=== PATIENT | female | born 1975 | race Caucasian/White ===

== ENCOUNTER 2020-01-16 18:40 | Emergency (ER) | payer MEDICARE ==
[~2020-01-16] VITALS: Ht 152.4 cm; Wt 60.0 kg
[2020-01-16 19:36] LABS: HEMATOCRIT 41.2 % (37.0-47.0); IMMATURE GRANULOCYTES 0.3 % (0.0-5.0); MEAN CELL VOLUME 94.7 fL CALC (80.0-100.0); MEAN CORPUSCULAR HGB 29.9 pG CALC (26.0-32.0); MEAN CORPUSCULAR HGB CONC 31.6 g/dL CAL (32.0-36.0); NEUT# 3.93 thou/uL (2.00-7.15); RED BLOOD COUNT 4.35 mill/uL (4.20-5.60); RED CELL DISTRI WIDTH 12.7 % (11.5-15.5)
[2020-01-16 19:38] LABS: URINE BILIRUBIN - DIPSTICK NEGATIVE (NEGATIVE); URINE BLOOD DIPSTICK NEGATIVE (NEGATIVE); URINE COLOR YELLOW; URINE GLUCOSE - DIPSTICK NEGATIVE (NEGATIVE); URINE KETONE NEGATIVE (NEGATIVE); URINE LEUK ESTERASE NEGATIVE (NEGATIVE); URINE NITRITE - DIPSTICK NEGATIVE (Negative); URINE PROTEIN - DIPSTICK NEGATIVE (NEG-TRACE); URINE SPECIFIC GRAVITY 1.025; URINE UROBILINOGEN - DIPSTICK 0.2 E.U./dL (0.2)
[2020-01-16 20:06] LABS: ALBUMIN 4.8 g/dL (3.2-5.0); ANION GAP 13 (6-22 (CALC)); BILIRUBIN, TOTAL 0.3 mg/dL (0.0-1.4); BUN 8 mg/dL (7-17); BUN/CREATININE RATIO 10 (12-20 (CALC)); CARBON DIOXIDE 29 mmol/l (22-30); CHLORIDE 97 mmol/l (95-108); CREATININE 0.8 mg/dL (0.5-1.0); GFR > 60 ML/MIN (>=60 (CALC)); GFR FOR AFR.AMER. > 60 ML/MIN (>=60 (CALC)); LIPASE 84 u/l (23-300); POTASSIUM 4.1 mmol/l (3.5-5.1); SGOT/AST 26 u/l (14-36); SODIUM 135 mmol/l (137-146)
[2020-01-16 20:09] LABS: ALKALINE PHOSPHATASE 79 u/l (38-126)
[2020-01-16] MEDS ORDERED: ONDANSETRON4 MG PO (21:07)
[2020-01-16] MEDS ORDERED: ULTRAM50 M1 PO (21:07)
[2020-01-16 21:14] VITALS: BP 159/86
== END 2020-01-16 21:14 | disposition home or self-care (01) ==
LOC: ED 18:40
DX: R10.32 Left lower quadrant pain (principal); G89.29 Other chronic pain; F17.200 Nicotine dependence, unspecified, uncomplicated; I25.2 Old myocardial infarction; Z95.5 Presence of coronary angioplasty implant and graft; Z91.041 Radiographic dye allergy status

== ENCOUNTER 2020-03-28 08:42 | Day surgery (SDC) | payer MEDICARE ==
[~2020-03-28] VITALS: Ht 152.4 cm; Wt 53.5 kg
[~2020-03-28 08:42] MED LIST: CARBAMAZEPIN200 MG PO; CLONAZEPAM1 MG PO; CRESTOR10 MG PO; CYMBALTA60 MG PO; FOLIC ACID1 MG PO; HYDROXYCHLOR200 M1 PO; MEDICAL MARIJUANA IN; ONDANSETRON4 MG PO; PLAVIX75 MG PO; ULTRAM50 M1 PO
[2020-03-28 10:49] VITALS: BP 125/59
== END 2020-03-28 10:48 | disposition home or self-care (01) ==
LOC: ENDO 08:42
PROVIDERS: ATTEND Surgery
PROC: 3E0G8GC Introduction of Other Therapeutic Substance into Upper GI, Via Natural or Artificial Opening Endoscopic (ICD-10-PCS; principal; 2020-03-28)
DX: K31.84 Gastroparesis (principal); Z87.891 Personal history of nicotine dependence; Z20.828 Contact with and (suspected) exposure to other viral communicable diseases
CPT/HCPCS: J0585

== ENCOUNTER 2021-04-21 18:53 | Emergency (ER) | payer MEDICARE ==
[~2021-04-21] VITALS: Ht 152.4 cm; Wt 54.0 kg
[2021-04-21 19:59] LABS: URINE BILIRUBIN - DIPSTICK NEGATIVE (NEGATIVE); URINE BLOOD DIPSTICK NEGATIVE (NEGATIVE); URINE COLOR YELLOW; URINE GLUCOSE - DIPSTICK NEGATIVE (NEGATIVE); URINE KETONE NEGATIVE (NEGATIVE); URINE LEUK ESTERASE NEGATIVE (NEGATIVE); URINE PROTEIN - DIPSTICK NEGATIVE (NEG-TRACE); URINE UROBILINOGEN - DIPSTICK 0.2 E.U./dL (0.2)
[2021-04-21 20:00] LABS: HEMATOCRIT 37.3 % (37.0-47.0); HEMOGLOBIN 12.2 g/dl (12.0-16.0); IMMATURE GRANULOCYTES 0.3 % (0.0-5.0); MEAN CELL VOLUME 93.7 fL CALC (80.0-100.0); MEAN CORPUSCULAR HGB 30.7 pG CALC (26.0-32.0); MEAN CORPUSCULAR HGB CONC 32.7 g/dL CAL (32.0-36.0); NEUT# 2.2 thou/uL (2.00-7.15); RED BLOOD COUNT 3.98 mill/uL (4.20-5.60); RED CELL DISTRI WIDTH 12.3 % (11.5-15.5)
[2021-04-21 20:00] LABS: URINE NITRITE - DIPSTICK NEGATIVE (Negative)
[2021-04-21] MEDS ORDERED: RANOLAZINE ER500 MG (20:02)
[2021-04-21] MEDS ORDERED: RASUVO10 MG/0.2 (20:03)
[2021-04-21] MEDS ORDERED: NITROGLYCERIN0.4 MG (20:04)
[2021-04-21 20:13] LABS: ALBUMIN 4.2 g/dL (3.2-5.0); ALKALINE PHOSPHATASE 61 u/l (38-126); AMYLASE 97 u/l (30-110); ANION GAP 14 (6-22 (CALC)); BUN 4 mg/dL (7-17); BUN/CREATININE RATIO 5 (12-20 (CALC)); CARBON DIOXIDE 26 mmol/l (22-30); CHLORIDE 100 mmol/l (95-108); CREATININE 0.9 mg/dL (0.5-1.0); GFR > 60 ML/MIN (>=60 (CALC)); GFR FOR AFR.AMER. > 60 ML/MIN (>=60 (CALC)); LIPASE 76 u/l (23-300); POTASSIUM 3.9 mmol/l (3.5-5.1); SGOT/AST 28 u/l (14-36); SODIUM 137 mmol/l (137-146); TOTAL PROTEIN 7.4 g/dL (6.3-8.2)
[2021-04-21 20:14] LABS: BILIRUBIN, TOTAL 0.5 mg/dL (0.0-1.4)
[2021-04-21] MEDS ORDERED: ULTRAM50 M1 PO (21:26)
[2021-04-21] MEDS ORDERED: PREVACID30 M3 PO (21:26)
[2021-04-21] MEDS ORDERED: ONDANSETRON4 MG PO (21:26)
[2021-04-21 21:46] VITALS: BP 138/80
== END 2021-04-21 21:49 | disposition home or self-care (01) ==
LOC: ED 18:53
PROVIDERS: Emergency Medicine
DX: K31.84 Gastroparesis (principal); M35.00 Sjogren syndrome, unspecified; I10 Essential (primary) hypertension; M06.9 Rheumatoid arthritis, unspecified; I25.2 Old myocardial infarction; Z95.5 Presence of coronary angioplasty implant and graft

== ENCOUNTER 2022-01-12 17:38 | Emergency (ER) | payer MEDICARE ==
[~2022-01-12] VITALS: Ht 152.4 cm; Wt 52.0 kg
[~2022-01-12 17:38] MED LIST changes: +NITROGLYCERIN0.4 MG; +PREVACID30 M3 PO; +RANOLAZINE ER500 MG; +RASUVO10 MG/0.2
[2022-01-12 20:02] LABS: HEMATOCRIT 39.2 % (37.0-47.0); HEMOGLOBIN 13.2 g/dl (12.0-16.0); IMMATURE GRANULOCYTES 0.4 % (0.0-5.0); MEAN CELL VOLUME 93.8 fL CALC (80.0-100.0); MEAN CORPUSCULAR HGB 31.6 pG CALC (26.0-32.0); MEAN CORPUSCULAR HGB CONC 33.7 g/dL CAL (32.0-36.0); NEUT# 3.43 thou/uL (2.00-7.15); RED BLOOD COUNT 4.18 mill/uL (4.20-5.60); RED CELL DISTRI WIDTH 12.5 % (11.5-15.5)
[2022-01-12 20:16] LABS: ALBUMIN 4.5 g/dL (3.2-5.0); ALKALINE PHOSPHATASE 71 u/l (38-126); ANION GAP 14 (6-22 (CALC)); BILIRUBIN, TOTAL 0.2 mg/dL (0.0-1.4); BUN 12 mg/dL (7-17); BUN/CREATININE RATIO 14 (12-20 (CALC)); CARBON DIOXIDE 27 mmol/l (22-30); CHLORIDE 100 mmol/l (95-108); CREATININE 0.9 mg/dL (0.5-1.0); GFR FOR AFR.AMER. > 60 ML/MIN (>=60 (CALC)); GFR OTHER RACES > 60 ML/MIN (>=60 (CALC)); POTASSIUM 4.1 mmol/l (3.5-5.1); SGOT/AST 32 u/l (14-36); SODIUM 137 mmol/l (137-146); TOTAL PROTEIN 7.9 g/dL (6.3-8.2)
[2022-01-12 21:29] VITALS: BP 141/79
[2022-01-12 21:30] VITALS: BP 142/76
[2022-01-12 21:45] VITALS: BP 138/77
[2022-01-12] MEDS ORDERED: FIORICET PO (21:52)
[2022-01-12 22:00] VITALS: BP 139/80
[2022-01-12 22:35] LABS: URINE BILIRUBIN - DIPSTICK NEGATIVE (NEGATIVE); URINE BLOOD DIPSTICK NEGATIVE (NEGATIVE); URINE COLOR YELLOW; URINE GLUCOSE - DIPSTICK NEGATIVE (NEGATIVE); URINE KETONE NEGATIVE (NEGATIVE); URINE LEUK ESTERASE NEGATIVE (NEGATIVE); URINE PROTEIN - DIPSTICK NEGATIVE (NEG-TRACE); URINE SPECIFIC GRAVITY <=1.005; URINE UROBILINOGEN - DIPSTICK 0.2 E.U./dL (0.2)
[2022-01-12 22:36] LABS: URINE NITRITE - DIPSTICK NEGATIVE (Negative)
== END 2022-01-12 22:05 | disposition home or self-care (01) ==
LOC: ED 17:38
PROVIDERS: Emergency Medicine
DX: R51.9 Headache, unspecified (principal); M79.10 Myalgia, unspecified site; J02.9 Acute pharyngitis, unspecified; I25.10 Atherosclerotic heart disease of native coronary artery without angina pectoris; M06.9 Rheumatoid arthritis, unspecified; M35.00 Sjogren syndrome, unspecified; I25.2 Old myocardial infarction; Z95.5 Presence of coronary angioplasty implant and graft; Z86.16 Personal history of COVID-19; Z20.822 Contact with and (suspected) exposure to COVID-19

== ENCOUNTER 2022-12-30 21:30 | Emergency (ER) | payer MEDICARE ==
[~2022-12-30] VITALS: Ht 152.4 cm; Wt 43.1 kg
[~2022-12-30 21:30] MED LIST changes: +FIORICET PO; +RANOLAZINE ER1000 MG PO; -RANOLAZINE ER500 MG
[2022-12-30 23:04] VITALS: BP 156/104
[2022-12-30] MEDS ORDERED: ZONISAMIDE50 MG PO (23:12)
[2022-12-30] MEDS ORDERED: PROTONIX40 M2 PO (23:12)
[2022-12-30] MEDS ORDERED: REPATHA SUR140 MG/ML SC (23:13)
[2022-12-30] MEDS ORDERED: VITAMIN D31000 UNI1 PO (23:13)
[2022-12-30 23:15] VITALS: BP 176/94
[2022-12-30] MEDS ORDERED: ARAVA10 MG PO (23:15)
[2022-12-30 23:30] VITALS: BP 171/84
[2022-12-30 23:45] VITALS: BP 139/77
[2022-12-31] VITALS (14 sets, daily range): BP systolic 129–175; BP diastolic 81–104
[2022-12-31 01:07] LABS: BASO% 0.2 % (0-3); EOS% 0.2 % (0-8); HEMATOCRIT 44.7 % (37.0-47.0); IMMATURE GRANULOCYTES 0.2 % (0.0-5.0); LYMPH% 33.8 % (15-41); MEAN CELL VOLUME 90.3 fL CALC (80.0-100.0); MEAN CORPUSCULAR HGB 29.5 pG CALC (26.0-32.0); MEAN CORPUSCULAR HGB CONC 32.7 g/dL CAL (32.0-36.0); MONO% 8.1 % (2-13); NEUT# 3.06 thou/uL (2.00-7.15); NEUT% 57.5 % (42-76); RED BLOOD COUNT 4.95 mill/uL (4.20-5.60); RED CELL DISTRI WIDTH 13.1 % (11.5-15.5)
[2022-12-31 01:18] LABS: HEMOGLOBIN 14.6 g/dl (12.0-16.0)
[2022-12-31 01:21] LABS: ALBUMIN 4.9 g/dL (3.2-5.0); ALKALINE PHOSPHATASE 95 u/l (38-126); AMYLASE 101 u/l (30-110); ANION GAP 19 (6-22 (CALC)); BILIRUBIN, TOTAL 0.7 mg/dL (0.02-1.3); BUN 9 mg/dL (7-17); BUN/CREATININE RATIO 9 (12-20 (CALC)); CARBON DIOXIDE 24 mmol/l (22-30); CHLORIDE 100 mmol/l (95-108); CREATININE 1.1 mg/dL (0.5-1.0); GFR FOR AFR.AMER. > 60 ML/MIN (>=60 (CALC)); GFR OTHER RACES 53 ML/MIN (>=60 (CALC)); SGOT/AST 58 u/l (14-36); SODIUM 138 mmol/l (137-146); TOTAL PROTEIN 8.5 g/dL (6.3-8.2)
[2022-12-31 01:30] LABS: URINE BILIRUBIN - DIPSTICK Negative (NEGATIVE); URINE BLOOD DIPSTICK Negative (NEGATIVE); URINE COLOR Yellow; URINE GLUCOSE - DIPSTICK Negative (NEGATIVE); URINE KETONE Negative (NEGATIVE); URINE LEUK ESTERASE Negative (NEGATIVE); URINE NITRITE - DIPSTICK Negative (Negative); URINE PH 5.5 (4.5-8.0); URINE PROTEIN - DIPSTICK Negative (NEG-TRACE); URINE SPECIFIC GRAVITY <=1.005; URINE UROBILINOGEN - DIPSTICK 0.2 E.U./dL (0.2)
[2022-12-31] MEDS ORDERED: ROBITUSSIN AC10 ML PO (01:49)
[2022-12-31] MEDS ORDERED: ZITHROMAX Z-PA250 MG PO (01:49)
[2022-12-31] MEDS ORDERED: ONDANSETRON4 MG PO (05:32)
== END 2022-12-31 03:30 | disposition home or self-care (01) ==
LOC: ED 21:30
PROVIDERS: Emergency Medicine
DX: U07.1 COVID-19 (principal); J06.9 Acute upper respiratory infection, unspecified; I25.2 Old myocardial infarction; Z95.5 Presence of coronary angioplasty implant and graft; M06.9 Rheumatoid arthritis, unspecified

== ENCOUNTER 2024-05-02 22:14 | Emergency (ER) | payer MEDICARE ==
[~2024-05-02] VITALS: Ht 152.4 cm; Wt 43.0 kg
[~2024-05-02 22:14] MED LIST changes: +ARAVA10 MG PO; +PROTONIX40 M2 PO; +REPATHA SUR140 MG/ML SC; +ROBITUSSIN AC10 ML PO; +VITAMIN D31000 UNI1 PO; +ZITHROMAX Z-PA250 MG PO; +ZONISAMIDE50 MG PO
[2024-05-02 22:28] VITALS: BP 157/99
[2024-05-02] MEDS ORDERED: NITROGLYCERIN 2% OINT UD 1 GM/PAK TD ONE (22:40)
[2024-05-02] MEDS ORDERED: MORPHINE SULFATE 4 MG/ML VIAL IV ONE (22:40)
[2024-05-02] MEDS ORDERED: SODIUM CHLORIDE 0.9% 1,000 ML IV ONE (22:40)
[2024-05-02] MEDS ORDERED: ASPIRIN 81 MG/TAB PO ONE (22:40)
[2024-05-02 22:51] LABS: EOS% 1.9 % (0-8); HEMATOCRIT 44.6 % (37.0-47.0); HEMOGLOBIN 14.2 g/dl (12.0-16.0); IMMATURE GRANULOCYTES 0.3 % (0.0-5.0); LYMPH% 42.1 % (15-41); MEAN CELL VOLUME 95.9 fL CALC (80.0-100.0); MEAN CORPUSCULAR HGB 30.5 pG CALC (26.0-32.0); MEAN CORPUSCULAR HGB CONC 31.8 g/dL CAL (32.0-36.0); MONO% 7.6 % (2-13); NEUT# 3.24 thou/uL (2.00-7.15); NEUT% 47.1 % (42-76); RED BLOOD COUNT 4.65 mill/uL (4.20-5.60)
[2024-05-02 22:52] VITALS: BP 129/82
[2024-05-02 23:05] LABS: ALBUMIN 4.8 g/dL (3.2-5.0); ALKALINE PHOSPHATASE 74 u/l (38-126); BILIRUBIN, TOTAL 0.4 mg/dL (0.02-1.3); BUN 15 mg/dL (7-17); BUN/CREATININE RATIO 15 (12-20 (CALC)); CARBON DIOXIDE 25 mmol/l (22-30); CHLORIDE 104 mmol/l (95-108); ESTIMATED GFR 69 ML/MIN (>=90 (CALC)); LIPASE 215 u/l (23-300); SGOT/AST 32 u/l (14-36); SODIUM 139 mmol/l (137-146); TOTAL PROTEIN 8.6 g/dL (6.3-8.2)
[2024-05-02 23:10] LABS: ACT PARTIAL THROMBO TIME 29.6 SECONDS (20.0-32.5); INTERNATIONAL NORMALIZED RATIO 0.9 RATIO (0.7-1.3)
[2024-05-02] MEDS ORDERED: PROMETHAZINE HCL 25 MG/ML AMP IV ONE (23:10)
[2024-05-02] MEDS ORDERED: DiphenhydrAMINE HCL 50 MG/ML SDV IV ONE (23:15)
[2024-05-02] MEDS ORDERED: methylPREDNISolone SODIUM SUCC 125 MG/2 ML SDV IV ONE (23:15)
[2024-05-02 23:19] LABS: PROTHROMBIN TIME 10.2 SECONDS (9.0-12.5)
[2024-05-02 23:20] VITALS: BP 143/88
[2024-05-02 23:20] LABS: ANION GAP 13 (6-22 (CALC)); D-DIMER 0.17 mg/L (0.19-0.60); POTASSIUM 3.4 mmol/l (3.5-5.1)
[2024-05-03] VITALS (7 sets, daily range): BP systolic 94–128; BP diastolic 62–78
[2024-05-03] MEDS ORDERED: Levofloxacin 750 mg Premix 150 ML IV ONE (00:55)
[2024-05-03] MEDS ORDERED: HYDROcodone 5 MG/Acetaminophen 325 MG/COMBO PO ONE (01:10)
[2024-05-03] MEDS ORDERED: MORPHINE SULFATE 4 MG/ML VIAL ONE (01:20)
[2024-05-03] MEDS ORDERED: LEVOFLOXACIN750 MG PO (02:27)
== END 2024-05-03 02:42 | disposition home or self-care (01) ==
LOC: ED 22:14
PROVIDERS: Family Medicine
DX: R07.9 Chest pain, unspecified (principal); J18.9 Pneumonia, unspecified organism; I25.2 Old myocardial infarction; M06.9 Rheumatoid arthritis, unspecified; Z95.5 Presence of coronary angioplasty implant and graft
CPT/HCPCS: J1200; J2550; Q9967